=== PATIENT | female | born 1955 | race Caucasian/White ===

== ENCOUNTER 2018-06-30 02:18 | Inpatient (IN) | payer BC ==
[~2018-06-30] VITALS: Ht 152.4 cm; Wt 83.4 kg
[2018-06-30] MEDS ORDERED: cloNIDine HCL 0.1 MG TAB PO PRN (15:30)
[2018-06-30] MEDS ORDERED: IBUPROFEN 800 MG TAB PO PRN (15:30)
[2018-06-30] MEDS ORDERED: ZOLPIDEM TARTRATE 5 MG TAB PO PRN (15:30)
[2018-06-30] MEDS ORDERED: ALUM & MAG HYDROX-SIMETH LIQ(MAALOX) 30 ML PO ONE (15:30)
[2018-06-30] MEDS ORDERED: ONDANSETRON HCL 4 MG/2 ML VIAL IV PRN (15:30)
[2018-06-30] MEDS ORDERED: ACETAMINOPHEN 325 MG TAB PO PRN (15:30)
[2018-06-30] MEDS ORDERED: DOCUSATE SOD 100 MG CAP PO PRN (15:30)
[2018-06-30] MEDS ORDERED: LORazepam 0.5 MG TAB PO PRN (15:30)
[2018-06-30] MEDS ORDERED: NITROGLYCERIN 0.4 MG SL TAB SL PRN (15:30)
[2018-06-30] MEDS ORDERED: MORPHINE SULFATE 4 MG/ML SYR/VIAL IV PRN (15:45)
[2018-06-30 16:57] VITALS: BP 159/91
[2018-06-30 22:00] VITALS: BP 136/74
[2018-06-30] MEDS: SODIUM CHLOR 0.9% PF (SALINE LOCK) 10ML VIAL/SYR IV SCH (22:00)
[2018-06-30] MEDS: CARVEDILOL 3.125 MG TAB PO SCH (22:00)
[2018-06-30] MEDS: traZODone HCL 50 MG TAB PO SCH (22:00)
[2018-06-30] MEDS: FLUTICASONE PROP NASAL SPR 0.05 % (50MCG) 16GM EACHNOSTRI SCH (22:00)
[2018-06-30] MEDS: FEXOFENADINE HCL 60 MG TAB PO SCH (22:00)
[2018-06-30] MEDS: ATORVASTATIN 20 MG TAB PO SCH (22:00)
[2018-06-30] MEDS: ENALAPRIL MALEATE 2.5 MG TAB PO SCH (22:00)
[2018-07-01 06:04] VITALS: BP 139/64
[2018-07-01 08:00] VITALS: BP 118/68
[2018-07-01] MEDS ORDERED: MORPHINE SULF INJ 2 MG/ML SYRINGE 1ML IV ONE (10:00)
[2018-07-01] MEDS: FLUTICASONE PROP NASAL SPR 0.05 % (50MCG) 16GM EACHNOSTRI SCH ×2 (10:46→21:44)
[2018-07-01] MEDS: FEXOFENADINE HCL 60 MG TAB PO SCH ×2 (10:47→21:45)
[2018-07-01] MEDS: ASPirin 81 mg TAB PO SCH (10:47)
[2018-07-01] MEDS: CITALOPRAM HYDROBR 20 MG TAB PO SCH (10:47)
[2018-07-01] MEDS: ENALAPRIL MALEATE 2.5 MG TAB PO SCH ×2 (10:48→21:51)
[2018-07-01] MEDS: CARVEDILOL 3.125 MG TAB PO SCH ×2 (10:48→21:51)
[2018-07-01] MEDS: CLOPIDOGREL BISULFATE 75 MG TAB PO SCH ×3 (10:48→11:04)
[2018-07-01 12:00] VITALS: BP 135/79
[2018-07-01 14:18] LABS: Basophils # (auto) 0.1 uL; Basophils % (auto) 1.1 % (0.0-2.0); Eosinophils # (auto) 0.3 uL; Eosinophils % (auto) 3.6 % (0.0-7.0); Hematocrit 38.9 % (36.0-46.0); Hemoglobin 13.2 g/dL (12.2-16.2); Lymphocytes # (auto) 2.3 uL; Lymphocytes % (auto) 27.4 % (10.0-50.0); Mean Corpuscular Hemoglobin 29.8 pg (28.0-32.0); Mean Corpuscular Hgb Conc. 33.9 g/dL (32.0-36.0); Monocytes # (auto) 0.4 uL; Monocytes % (auto) 5.2 % (0.0-12.0); Neutrophils # (auto) 5.2 uL; Neutrophils % (auto) 62.7 % (37.0-80.0); Platelet Count (auto) 401 10^3/uL (140-450); Red Blood Cells 4.43 10^6/uL (4.0-5.20); Red Cell Distribution Width 14.3 % (11.8-14.3); White Blood Cell 8.3 10^3/uL (4.4-10.8)
[2018-07-01] MEDS ORDERED: TRAZ100T2 PO (14:35)
[2018-07-01] MEDS: SODIUM CHLOR 0.9% PF (SALINE LOCK) 10ML VIAL/SYR IV SCH ×2 (14:35→21:45)
[2018-07-01] MEDS ORDERED: CITA-30 PO (14:35)
[2018-07-01 14:43] LABS: Anion Gap 5 (5-15); BUN/Creatinine Ratio 20.4; Blood Urea Nitrogen 20 mg/dL (7-18); Calcium 8.4 mg/dL (8.5-10.1); Carbon Dioxide 28 mmol/L (21-32); Chloride 106 mmol/L (98-107); GFR African American 74 mL/min; GFR Non-African American 61 mL/min; Glucose 109 mg/dL (74-106); Sodium 139 mmol/L (136-145)
[2018-07-01 16:00] VITALS: BP_SYST 123; BP_SYST 130; BP_DIAS 66; BP_DIAS 73
[2018-07-01] MEDS: ATORVASTATIN 20 MG TAB PO SCH (21:45)
[2018-07-01] MEDS: traZODone HCL 50 MG TAB PO SCH (21:45)
[2018-07-01 22:00] VITALS: BP 134/71
[2018-07-02 05:38] VITALS: BP 119/66
[2018-07-02] MEDS: SODIUM CHLOR 0.9% PF (SALINE LOCK) 10ML VIAL/SYR IV SCH ×3 (06:00→21:31)
[2018-07-02 07:24] LABS: Basophils # (auto) 0.1 uL; Basophils % (auto) 0.7 % (0.0-2.0); Eosinophils # (auto) 0.4 uL; Eosinophils % (auto) 5.7 % (0.0-7.0); Hematocrit 37.7 % (36.0-46.0); Hemoglobin 12.9 g/dL (12.2-16.2); Lymphocytes # (auto) 2.6 uL; Lymphocytes % (auto) 34.8 % (10.0-50.0); Mean Corpuscular Hemoglobin 30.2 pg (28.0-32.0); Mean Corpuscular Hgb Conc. 34.3 g/dL (32.0-36.0); Mean Corpuscular Volume 88.1 fL (80.0-100.0); Monocytes # (auto) 0.6 uL; Monocytes % (auto) 8.5 % (0.0-12.0); Neutrophils # (auto) 3.8 uL; Neutrophils % (auto) 50.3 % (37.0-80.0); Platelet Count (auto) 394 10^3/uL (140-450); Red Blood Cells 4.28 10^6/uL (4.0-5.20); Red Cell Distribution Width 14.4 % (11.8-14.3); White Blood Cell 7.5 10^3/uL (4.4-10.8)
[2018-07-02 07:40] LABS: BUN/Creatinine Ratio 23.1; Calcium 8.6 mg/dL (8.5-10.1); Magnesium 2.6 mg/dL (1.6-2.6); Potassium 4.1 mmol/L (3.5-5.1)
[2018-07-02] MEDS ORDERED: ADENOSINE 70 MG in GIVE UN-DILUTED 0 ML IV STA (08:23)
[2018-07-02 08:50] VITALS: BP 146/71
[2018-07-02 10:41] VITALS: BP 156/74
[2018-07-02] MEDS: ASPirin 81 mg TAB PO SCH (12:49)
[2018-07-02] MEDS: CLOPIDOGREL BISULFATE 75 MG TAB PO SCH (12:51)
[2018-07-02] MEDS: FEXOFENADINE HCL 60 MG TAB PO SCH ×2 (12:51→21:29)
[2018-07-02] MEDS: CITALOPRAM HYDROBR 20 MG TAB PO SCH (12:51)
[2018-07-02] MEDS: FLUTICASONE PROP NASAL SPR 0.05 % (50MCG) 16GM EACHNOSTRI SCH ×2 (12:51→21:29)
[2018-07-02] MEDS: CARVEDILOL 3.125 MG TAB PO SCH ×2 (12:53→22:00)
[2018-07-02] MEDS: ENALAPRIL MALEATE 2.5 MG TAB PO SCH ×2 (12:54→22:00)
[2018-07-02 13:00] VITALS: BP 155/81
[2018-07-02 17:00] VITALS: BP 152/86
[2018-07-02] MEDS: ATORVASTATIN 20 MG TAB PO SCH (21:29)
[2018-07-02] MEDS: traZODone HCL 50 MG TAB PO SCH (21:29)
[2018-07-02 22:17] VITALS: BP 145/85
[2018-07-03] MEDS: SODIUM CHLOR 0.9% PF (SALINE LOCK) 10ML VIAL/SYR IV SCH (06:15)
[2018-07-03 08:06] VITALS: BP 138/71
[2018-07-03] MEDS: CARVEDILOL 3.125 MG TAB PO SCH (10:00)
[2018-07-03] MEDS: ENALAPRIL MALEATE 2.5 MG TAB PO SCH (10:00)
[2018-07-03] MEDS: FEXOFENADINE HCL 60 MG TAB PO SCH (10:04)
[2018-07-03] MEDS: FLUTICASONE PROP NASAL SPR 0.05 % (50MCG) 16GM EACHNOSTRI SCH (10:04)
[2018-07-03] MEDS: CLOPIDOGREL BISULFATE 75 MG TAB PO SCH (10:05)
[2018-07-03] MEDS: ASPirin 81 mg TAB PO SCH (10:05)
[2018-07-03] MEDS: CITALOPRAM HYDROBR 20 MG TAB PO SCH (10:05)
[2018-07-03 10:14] VITALS: BP 146/89
== END 2018-07-03 11:00 | disposition home or self-care (01) | DRG 303 ==
LOC: ER 02:18 → TELE-EAST 02:19
PROVIDERS: ADMIT Internal Medicine; ATTEND Internal Medicine
DX: I25.10 Atherosclerotic heart disease of native coronary artery without angina pectoris (principal); E44.1 Mild protein-calorie malnutrition; E78.5 Hyperlipidemia, unspecified; E87.6 Hypokalemia; F32.9 Major depressive disorder, single episode, unspecified; F41.9 Anxiety disorder, unspecified; M19.90 Unspecified osteoarthritis, unspecified site; E11.9 Type 2 diabetes mellitus without complications; E03.9 Hypothyroidism, unspecified; I10 Essential (primary) hypertension; Z86.73 Personal history of transient ischemic attack (TIA), and cerebral infarction without residual deficits; Z91.81 History of falling; Z88.8 Allergy status to other drugs, medicaments and biological substances; Z88.2 Allergy status to sulfonamides; Z68.35 Body mass index [BMI] 35.0-35.9, adult
CPT/HCPCS: 36415; 71045; 78452; 80048; 80053; 80061; 81001; 83735; 83880; 84443; 84484; 85025; 85379; 93005; 93017; 93306; A6257; J0153